=== PATIENT | male | born 1980 | race American Indian/Alaskan Native ===

== ENCOUNTER 2018-05-03 15:31 | Emergency (ER) | payer SELFPAY ==
[2018-05-03 15:42] VITALS: BP 135/92
[2018-05-03] MEDS ORDERED: Ondansetron 4 MG/2 ML SDV IVPUSH ONE (16:05)
[2018-05-03] MEDS ORDERED: HYDROmorphone 1 MG/ML Syringe IVPUSH ONE (16:05)
[2018-05-03] MEDS ORDERED: Sodium Chloride 0.9% 10 ML Syringe FLUSH ONE (16:22)
[2018-05-03] MEDS ORDERED: Iopamidol 755 Mg/ML 100 ML Bottle IVPUSH ONE (16:22)
[2018-05-03] MEDS ORDERED: Sodium Chloride 0.9% 100 ML IV SCH (16:30)
[2018-05-03] MEDS ORDERED: Sodium Chloride 0.9% 1,000 ML IV ONE (16:48)
--- NOTE | 2018-05-03 18:32 | EDM.PDOC ---
ED HPI GENERAL MEDICAL PROBLEM - General Chief Complaint: General Stated Complaint: DIZZY Time Seen by Provider: 05/03/18 15:55 Source of Information: Reports: Patient History Limitations: Reports: No Limitations - History of Present Illness INITIAL COMMENTS - FREE TEXT/NARRATIVE: 37 year old male presents for evaluation and treatment of dizziness, shortness of breath and chest pain. Patient reports he had an uncomplicated lap madisyn with Dr. Villagran on 04-13-18. No complications with the procedure, he was discharge home that day. 1 week ago he follow-up with Dr. Villagran. Reported chest pain and shortness of breath. He was reportedly tachycardic in the office and encouraged to come to the ER. Reports he did not come due to insurance and costs concerns. Patient is currently reporting symptoms of shortness of breath, cough, lightheadedness and mid back pain. Reports chest pain one week ago, none currently. Chest pain was worse with deep breathing. Reports he had an episode of syncope yesterday, unwitnessed unclear how long he passed out for. Patient is reporting cramping in the left foot. No pain in the calfs. No recent swelling the legs. Patient reports he has a past medical history of PE. Developed a PE after being hospitalized for a drug OD and was intubated in the ICU. This was several years ago. Not currently on blood thinners. Mid-Sternal Chest Pain Score (Numeric/FACES): 4 - Related Data Allergies Allergy/AdvReac Type Severity Reaction Status Date / Time cephalexin monohydrate Allergy Hives Verified 04/02/18 10:52 [From Keflex] cyclobenzaprine HCl Allergy Seizure Verified 04/02/18 10:52 [From Flexeril] diazepam [From Valium] Allergy Seizure Verified 04/02/18 10:52 Home Meds: Home Meds Albuterol Sulfate [Albuterol Sulfate HFA] 1 puff INH QID PRN 04/06/14 [History] levETIRAcetam [Keppra] 500 mg PO DAILY 04/06/14 [History] metFORMIN [Glucophage] 500 mg PO BID 04/06/14 [History] Apixaban [Eliquis] 5 mg PO DAILY 02/11/16 [History] Dicyclomine HCl [Bentyl] 10 mg PO Q6HR 04/07/16 [History] Acetaminophen/HYDROcodone [[place] 325-5 MG] 1 - 2 tab PO Q6H PRN #10 tablet 04/08 [Rx] Past Medical History HEENT History: Reports: Impaired Vision Cardiovascular History: Reports: Blood Clots/VTE/DVT, Hypertension Respiratory History: Reports: Asthma Gastrointestinal History: Reports: GERD Neurological History: Reports: Seizure Psychiatric History: Reports: Anxiety, Depression Endocrine/Metabolic History: Reports: Diabetes, Type II - Infectious Disease History Other Infectious Disease History: camphlobacter - Past Surgical History GI Surgical History: Reports: Appendectomy, Cholecystectomy Other Neurological Surgeries/Procedures: gets twitches Musculoskeletal Surgical History: Reports: ORIF Social & Family History - Family History Family Medical History: Noncontributory Endocrine/Metabolic: Reports: Diabetes, type II - Tobacco Use Smoking Status *Q: Never Smoker - Caffeine Use Caffeine Use: Reports: Coffee Other Caffeine Use: 12 pack a day root beer - Living Situation & Occupation Living situation: Reports: Single, with Family Occupation: Employed ED ROS GENERAL - Review of Systems Review Of Systems: See Below Respiratory: Reports: Shortness of Breath, Cough Cardiovascular: Reports: Chest Pain GI/Abdominal: Denies: Abdominal Pain, Nausea, Vomiting Musculoskeletal: Reports: Back Pain, Foot Pain (left foot cramping). Denies: Leg Pain Neurological: Reports: Syncope (yesterday) ED EXAM, GENERAL - Physical Exam Exam: See Below Exam Limited By: No Limitations General Appearance: Alert, WD/WN, No Apparent Distress Throat/Mouth: Normal Inspection, Normal Voice, No Airway Compromise Respiratory/Chest: No Respiratory Distress, Lungs Clear, Normal Breath Sounds Cardiovascular: Normal Peripheral Pulses, Regular Rate, Rhythm, No Murmur GI/Abdominal: Normal Bowel Sounds, Soft, Non-Tender Neurological: Alert, Oriented, Normal Cognition Psychiatric: Normal Affect, Normal Mood Skin Exam: Warm, Dry, Normal Color EKG INTERPRETATION EKG Date: 05/03/18 Time: 16:03 Rhythm: NSR Rate (Beats/Min): 100 [place]: Normal P-Wave: Present QRS: Normal ST-T: Normal QT: Normal EKG Interpretation Comments: Sinus tachycardia at 100 bpm. No acute changes. Reviewed by myself and Dr. Tee. Course - Vital Signs Last Recorded V/S: Last Vital Signs Temp 97.4 F 05/03/18 15:39 Pulse 98 05/03/18 15:39 Resp 16 05/03/18 15:39 BP 135/92 H 05/03/18 15:39 Pulse Ox 97 05/03/18 15:39 - Orders/Labs/Meds Labs: Laboratory Tests 05/03/18 05/03/18 05/03/18 Range/Units 15:50 15:50 15:50 WBC 8.65 (4.23-9.07) K/mm3 RBC 4.77 (4.63-6.08) M/mm3 Hgb 14.7 (13.7-17.5) gm/L Hct 42.2 (40.1-51.0) % MCV 88.5 (79.0-92.2) fl MCH 30.8 (25.7-32.2) pg MCHC 34.8 (32.2-35.5) g/dl RDW Std Deviation 46.0 H (35.1-43.9) fL Plt Count 266 (163-337) K/mm3 MPV 12.7 H (9.4-12.3) fl Neut % (Auto) 44.6 (34.0-67.9) % Lymph % (Auto) 40.0 (21.8-53.1) % [place] % (Auto) 9.6 (5.3-12.2) % Eos % (Auto) 5.0 (0.8-7.0) Baso % (Auto) 0.5 (0.1-1.2) % Neut # (Auto) 3.86 (1.78-5.38) K/mm3 Lymph # (Auto) 3.46 (1.32-3.57) K/mm3 [place] # (Auto) 0.83 H (0.30-0.82) K/mm3 Eos # (Auto) 0.43 (0.04-0.54) K/mm3 Baso # (Auto) 0.04 (0.01-0.08) K/mm3 PT 10.1 (9.5-12.1) SECONDS INR 0.93 APTT 26 (24-31) SECONDS D-Dimer, Quantitative 0.49 (0.19-0.50) mg/L Sodium 141 (136-145) mEq/L Potassium 4.1 (3.5-5.1) mEq/L Chloride 104 (98-107) mEq/L Carbon Dioxide 21 (21-32) mEq/L Anion Gap 20.1 H (5-15) BUN 33 H (7-18) mg/dL Creatinine 1.2 (0.7-1.3) mg/dL Est Cr Clr Drug Dosing 77.27 mL/min Estimated GFR (MDRD) > 60 (>60) mL/min BUN/Creatinine Ratio 27.5 H (14-18) Glucose 154 H (74-106) mg/dL Calcium 9.5 (8.5-10.1) mg/dL Total Bilirubin 0.4 (0.2-1.0) mg/dL AST 26 (15-37) U/L ALT 58 (16-63) U/L Alkaline Phosphatase 93 (46-116) U/L Troponin I < 0.017 (0.00-0.056) ng/mL C-Reactive Protein (<1.0) mg/dL NT-Pro-B Natriuret Pep (0-125) pg/mL Total Protein 7.6 (6.4-8.2) g/dl Albumin 4.1 (3.4-5.0) g/dl Globulin 3.5 gm/dL Albumin/Globulin Ratio 1.2 (1-2) 05/03/18 05/03/18 Range/Units 15:50 15:50 WBC (4.23-9.07) K/mm3 RBC (4.63-6.08) M/mm3 Hgb (13.7-17.5) gm/L Hct (40.1-51.0) % MCV (79.0-92.2) fl MCH (25.7-32.2) pg MCHC (32.2-35.5) g/dl RDW Std Deviation (35.1-43.9) fL Plt Count (163-337) K/mm3 MPV (9.4-12.3) fl Neut % (Auto) (34.0-67.9) % Lymph % (Auto) (21.8-53.1) % [place] % (Auto) (5.3-12.2) % Eos % (Auto) (0.8-7.0) Baso % (Auto) (0.1-1.2) % Neut # (Auto) (1.78-5.38) K/mm3 Lymph # (Auto) (1.32-3.57) K/mm3 [place] # (Auto) (0.30-0.82) K/mm3 Eos # (Auto) (0.04-0.54) K/mm3 Baso # (Auto) (0.01-0.08) K/mm3 PT (9.5-12.1) SECONDS INR APTT (24-31) SECONDS D-Dimer, Quantitative (0.19-0.50) mg/L Sodium (136-145) mEq/L Potassium (3.5-5.1) mEq/L Chloride (98-107) mEq/L Carbon Dioxide (21-32) mEq/L Anion Gap (5-15) BUN (7-18) mg/dL Creatinine (0.7-1.3) mg/dL Est Cr Clr Drug Dosing mL/min Estimated GFR (MDRD) (>60) mL/min BUN/Creatinine Ratio (14-18) Glucose (74-106) mg/dL Calcium (8.5-10.1) mg/dL Total Bilirubin (0.2-1.0) mg/dL AST (15-37) U/L ALT (16-63) U/L Alkaline Phosphatase (46-116) U/L Troponin I (0.00-0.056) ng/mL C-Reactive Protein < 0.2 (<1.0) mg/dL NT-Pro-B Natriuret Pep < 5 (0-125) pg/mL Total Protein (6.4-8.2) g/dl Albumin (3.4-5.0) g/dl Globulin gm/dL Albumin/Globulin Ratio (1-2) Meds: Medications Discontinued Medications Generic Name Dose Route Start Last Admin Trade Name Freq PRN Reason Stop Dose Admin Hydromorphone HCl 0.5 mg 05/03/18 16:05 05/03/18 16:27 Dilaudid IVPUSH 05/03/18 16:06 0.5 mg ONETIME ONE Administration Sodium Chloride 100 mls @ 60 mls/hr 05/03/18 16:30 Normal Saline IV ASDIRECTED PRISCA Sodium Chloride 1,000 mls @ 999 mls/hr 05/03/18 16:48 05/03/18 16:54 Normal Saline IV 05/03/18 17:48 999 mls/hr ONETIME ONE Administration Iopamidol 100 ml 05/03/18 16:22 Isovue-370 (76%) IVPUSH 05/03/18 16:23 ONETIME ONE Ondansetron HCl 4 mg 05/03/18 16:05 05/03/18 16:27 Zofran IVPUSH 05/03/18 16:06 4 mg ONETIME ONE Administration Sodium Chloride 10 ml 05/03/18 16:22 Saline Flush FLUSH 05/03/18 16:23 ONETIME ONE - Radiology Interpretation Free Text/Narrative:: chest xray shows no acute intrathoraocic process - Re-Assessments/Exams Free Text/Narrative Re-Assessment/Exam: 05/03/18 18:29 Reviewed the labs, ekg and imaging with the patient. He reports he is feeling improved at this time. Suspect he is experiencing pain from the recent surgery and being insuflated. Suspect the recent syncopal episode is from dehydration. Recommend close follow-up in the clinic. Discharge instructions as documented. Departure - Departure Time of Disposition: 18:30 Disposition: Home, Self-Care 01 Condition: Fair Clinical Impression: Dehydration - Discharge Information *PRESCRIPTION DRUG MONITORING PROGRAM REVIEWED*: No *COPY OF PRESCRIPTION DRUG MONITORING REPORT IN PATIENT RADHA: No Instructions: Dehydration, Adult, [id number] Referrals: PCP,None [Primary Care Provider] - Xena Matson MD [Ordering Only Provider] - Forms: ED Department Discharge Additional Instructions: Rest. make sure you are drinking plenty of fluids. May take [id number] Tylenol or Motrin as needed for pain. I suspect the pain should resolve within the next week or 2. This is likely from your recent gallbladder surgery. Follow up with primary care this week or next week for recheck of your symptoms. Recommend follow-up with family medicine recommend Xena Matson or Suyapa Adams at the [facility]. Call [phone] to schedule with one of these providers. Please return to the ER if your symptoms change or worsen.
--- NOTE | 2018-05-05 08:30 | CR ---
Chest: Portable view of the chest was obtained. Comparison: Prior chest x-ray of 04/06/14. Heart size and mediastinum are normal. Lungs are clear. Bony structures are unremarkable. Impression: 1. Nothing acute is seen on portable chest x-ray. Diagnostic code #1
== END 2018-05-03 18:40 | disposition home or self-care (01) ==
LOC: JD.ED 15:31
DX: E86.0 Dehydration (principal); I10 Essential (primary) hypertension; F32.9 Major depressive disorder, single episode, unspecified; E11.9 Type 2 diabetes mellitus without complications; J45.909 Unspecified asthma, uncomplicated; Z88.1 Allergy status to other antibiotic agents; Z88.8 Allergy status to other drugs, medicaments and biological substances; Z79.899 Other long term (current) drug therapy; Z79.84 Long term (current) use of oral hypoglycemic drugs
CPT/HCPCS: 36415; 71045; 80053; 83880; 84484; 85025; 85379; 85610; 85730; 86140; 87804; 93005; 96361; 96374; 96375; 99284; J1170; J2405; J7040

== ENCOUNTER 2018-10-31 13:07 | Emergency (ER) | payer SELFPAY ==
[2018-10-31 13:23] VITALS: BP 151/93
[2018-10-31] MEDS ORDERED: Metoclopramide 10 MG/2 ML SDV IVPUSH ONE (13:29)
[2018-10-31] MEDS ORDERED: HYDROmorphone 1 MG/ML Syringe IVPUSH ONE (13:29)
[2018-10-31] MEDS ORDERED: Dextrose 5%-0.9% NaCl 1,000 ML IV SCH (13:30)
--- NOTE | 2018-10-31 13:37 | EDM.PDOC ---
ED HPI GENERAL MEDICAL PROBLEM - General Chief Complaint: Head Injury Stated Complaint: FELL AND HIT HEAD Time Seen by Provider: 10/31/18 13:28 Source of Information: Reports: Patient History Limitations: Reports: No Limitations - History of Present Illness INITIAL COMMENTS - FREE TEXT/NARRATIVE: 37-year-old male presents to the ED after getting tripped up in a flower bed outside of his home. He states he got tripped up with some decorative rocks and this propelled him to the ground landing very hard on the top of his right shoulder. He also hit the right side of his head but he states this is minor compared to the pain in his shoulder. Of note it's his right shoulder that was injured and he is right-hand dominant. No loss of consciousness.. Injury occurred about 10:30 this morning. Onset: Today Onset Date: 10/31/18 Onset Time: 10:30 Duration: Hour(s): Location: Reports: Upper Extremity, Right Quality: Reports: Ache (Right shoulder), Throbbing Severity: Moderate Improves with: Reports: Rest Worsens with: Reports: Movement (It hurts quite badly even at rest. Marked pain with movement such as attempting to abduct.) Context: Reports: Trauma (Tripped up and fell in the flower bed.). Denies: Activity, Exercise, Lifting, Sick Contact Associated Symptoms: Reports: Other (Mild contusion right parietal scalp). Denies: Confusion, Chest Pain, Cough, cough w sputum, Diaphoresis, Fever/Chills , Headaches, Loss of Appetite, Malaise, Nausea/Vomiting Treatments MEAT HOSTESS: Reports: Other (see below) (None.) Right Head Pain Score (Numeric/FACES): 6 Right Shoulder Pain Score (Numeric/FACES): 8 - Related Data Allergies Allergy/AdvReac Type Severity Reaction Status Date / Time cephalexin monohydrate Allergy Hives Verified 04/02/18 10:52 [From Keflex] cyclobenzaprine HCl Allergy Seizure Verified 04/02/18 10:52 [From Flexeril] diazepam [From Valium] Allergy Seizure Verified 04/02/18 10:52 Home Meds: Home Meds Albuterol Sulfate [Albuterol Sulfate HFA] 1 puff INH QID PRN 04/06/14 [History] levETIRAcetam [Keppra] 500 mg PO BID 04/06/14 [History] metFORMIN [Glucophage] 500 mg PO BID 04/06/14 [History] Dicyclomine HCl [Bentyl] 10 mg PO Q6HR 04/07/16 [History] Mometasone/Formoterol [[place]ulera 200 Mcg/5 Mcg Inhaler] 2 puff INH DAILY 10/31/18 [ History] oxyCODONE HCl/Acetaminophen [Percocet 5-325 mg Tablet] 1 - 2 each PO Q4H PRN # 12 tablet 10/31/18 [Rx] Past Medical History HEENT History: Reports: Impaired Vision Cardiovascular History: Reports: Blood Clots/VTE/DVT, Hypertension Respiratory History: Reports: Asthma Gastrointestinal History: Reports: GERD Neurological History: Reports: Seizure Psychiatric History: Reports: Anxiety, Depression Endocrine/Metabolic History: Reports: Diabetes, Type II - Infectious Disease History Other Infectious Disease History: camphlobacter - Past Surgical History GI Surgical History: Reports: Appendectomy, Cholecystectomy Other Neurological Surgeries/Procedures: gets twitches Musculoskeletal Surgical History: Reports: ORIF Social & Family History - Family History Family Medical History: Noncontributory Endocrine/Metabolic: Reports: Diabetes, type II - Tobacco Use Smoking Status *Q: Former Smoker Used Tobacco, but Quit: Yes Month/Year Tobacco Last Used: 2 yr - Caffeine Use Caffeine Use: Reports: Coffee, Soda Other Caffeine Use: 12 pack a day root beer - Recreational Drug Use Recreational Drug Type: Reports: Marijuana/Hashish Recreational Drug Use Frequency: Daily - Living Situation & Occupation Living situation: Reports: Single, with Family Occupation: Employed ED ROS GENERAL - Review of Systems Review Of Systems: See Below Constitutional: Reports: No Symptoms HEENT: Reports: Glasses Respiratory: Reports: No Symptoms Cardiovascular: Reports: No Symptoms Endocrine: Reports: No Symptoms GI/Abdominal: Reports: No Symptoms : Reports: No Symptoms Musculoskeletal: Reports: No Symptoms Skin: Reports: No Symptoms Neurological: Reports: No Symptoms Psychiatric: Reports: No Symptoms Hematologic/Lymphatic: Reports: No Symptoms Immunologic: Reports: No Symptoms ED EXAM, HEAD INJURY - Physical Exam Exam: See Below Exam Limited By: No Limitations General Appearance: Alert, Moderate Distress (In obvious pain and discomfort right shoulder) Head: Scalp Tenderness (Some tenderness in the parietal scalp and along the right side of his face but there is no significant swelling or abrasions or contusions.), Facial Tenderness (Anterior to the right ear and temporal parietal scalp without any scalp hematoma) Nexus Criteria: No: Posterior, Midline Cervical Tenderness, Evidence of Intoxication, Altered Level of Consciousness, Focal Neurological Deficit, Painful Distraction Injuries Eyes: Bilateral Eye: Normal Inspection Ears: Normal TMs Nose: Normal Inspection Throat/Mouth: Normal Inspection, Normal Lips, Normal Teeth, Normal Oropharynx, Normal Voice, Other (No dental or tongue injury.) Neck: Non-Tender, Full Range of Motion, Normal Alignment, Normal Inspection Respiratory: No Respiratory Distress, Lungs Clear, Normal Breath Sounds, No Accessory Muscle Use, Chest Non-Tender Cardiovascular: Normal Peripheral Pulses, Regular Rate, Rhythm, No Edema, No Gallop, No Murmur, No Rub Extremities: Other (Examination reveals marked swelling on the superior aspect of his right shoulder with point tenderness over the acromioclavicular joint. Obvious deformity of the proximal humerus although he has fairly large arms. Distal clavicle is also very tender to palpation.) Neurologic: No Motor/Sensory Deficits, Alert, Normal Mood/Affect, Oriented x 3 Skin: Normal Color, Warm/Dry - Rosana Coma Score Best Eye Response ([place]): (4) Open Spontaneously Best Verbal Response ([place]): (5) Oriented Best Motor Response ([place]): (6) Obeys Commands Rosana Total: 15 Course - Vital Signs Last Recorded V/S: Last Vital Signs Temp 36.8 C 10/31/18 13:20 Pulse 89 10/31/18 13:20 Resp 20 10/31/18 13:20 BP 151/93 H 10/31/18 13:20 Pulse Ox 98 10/31/18 13:20 - Orders/Labs/Meds Meds: Medications Discontinued Medications Generic Name Dose Route Start Last Admin Trade Name Jonathanq PRN Reason Stop Dose Admin Hydromorphone HCl 1 mg 10/31/18 13:29 10/31/18 14:16 Dilaudid IVPUSH 10/31/18 13:30 1 mg ONETIME ONE Administration Dextrose/Sodium Chloride 1,000 mls @ 125 mls/hr 10/31/18 13:30 10/31/18 14:13 Dextrose 5%-Normal Saline IV 125 mls/hr ASDIRECTED PRISCA Administration Metoclopramide HCl 10 mg 10/31/18 13:29 10/31/18 14:13 Reglan IVPUSH 10/31/18 13:30 10 mg ONETIME ONE Administration - Radiology Interpretation Free Text/Narrative:: 37-year-old male presents to the ED after getting tripped up and falling in his floor bed. States he landed with direct blow to his right shoulder. Injury occurred about 10:30 this morning. Currently unable to forward flex or abduct the right arm due to pain in the shoulder. He on examination has significant swelling over the superior right shoulder and point tenderness over the acromioclavicular process. Plan IV D5 normal saline at 150 mils per hour. Will give Dilaudid 1 mg IV with Reglan 10 mg IV for pain relief. He is acting like he has a fracture. Plan x-rays of the shoulder will be done. - Re-Assessments/Exams Free Text/Narrative Re-Assessment/Exam: 10/31/18 14:14 x-ray of the right shoulder shows no dislocation or fractures. The acromioclavicular joint is aligned normally. There is a large amount of soft tissue swelling over the A-C joint and this is where he has well localized tenderness. Treatment will be sling and swath. Ice one half hour out of every 4 hours. He will be out of work for the next week. We'll give him 10 Percocet tablets to take 1 every 4-6 hours with Motrin 600 mg every 6 hours for pain relief. Departure - Departure Time of Disposition: 14:25 Disposition: Home, Self-Care 01 Condition: Fair Clinical Impression: Acromioclavicular separation, type 1 Qualifiers: Encounter type: initial encounter Laterality: right Qualified Code(s): S43.101A - Unspecified dislocation of right acromioclavicular joint, initial encounter - Discharge Information *PRESCRIPTION DRUG MONITORING PROGRAM REVIEWED*: No *COPY OF PRESCRIPTION DRUG MONITORING REPORT IN PATIENT RADHA: No Prescriptions: oxyCODONE HCl/Acetaminophen [Percocet 5-325 mg Tablet] 1 - 2 each PO Q4H PRN # 12 tablet PRN Reason: pain relief. Instructions: Acromioclavicular Separation, Acromioclavicular Separation Rehab- [facility] Referrals: PCP,None [Primary Care Provider] - Forms: ED Department Discharge Additional Instructions: Evaluation the emergency room today in regards to a fall at home outside. He suffered a direct blow to the superior or top of your right shoulder. There is marked soft tissue swelling in the trapezius muscle on top of your shoulder. There is point tenderness over the acromioclavicular joint. An x-ray of your right shoulder was carried out after you were given intravenous pain medications as concern for fracture was evident. The x-rays reveal no fractures however in the right shoulder or dislocation of the shoulder or injury to the arm bone called the humerus. Clinically you have suffered a grade 1 separation of the acromioclavicular joint and significant soft tissue swelling on the right shoulder. Treatment is to immobilize the right arm for the next week. After this she may take it out of the sling and start to regain range of motion. Ice pack to the area for one half hour out of every 4 hours today and tomorrow. Motrin 600 mg every 6 hours. Percocet tabs 5/325 mg one or 2 every 4- 6 hours for pain not controlled by Motrin alone. Note given to excuse her from the work place for at least the next week and it may be closer to 10 days before he able to return to full duties. Suggest follow-up with personal care physician in a week's time or the occupational health clinic on the [facility] on Thursday next week.
--- NOTE | 2018-11-01 11:06 | CR ---
Right shoulder: Three views of the right shoulder were obtained. Comparison: No previous study. Glenohumeral and acromioclavicular joint appears within normal limits. No fracture, dislocation or other bony abnormality is seen. Impression: 1. No abnormality is identified on right shoulder exam. Diagnostic code #1
== END 2018-10-31 15:30 | disposition home or self-care (01) ==
LOC: JD.ED 13:07
DX: S43.101A Unspecified dislocation of right acromioclavicular joint, initial encounter (principal); I10 Essential (primary) hypertension; J45.909 Unspecified asthma, uncomplicated; K21.9 Gastro-esophageal reflux disease without esophagitis; F41.9 Anxiety disorder, unspecified; F32.9 Major depressive disorder, single episode, unspecified; E11.9 Type 2 diabetes mellitus without complications; Z87.891 Personal history of nicotine dependence; Z88.1 Allergy status to other antibiotic agents; Z79.84 Long term (current) use of oral hypoglycemic drugs; Z79.899 Other long term (current) drug therapy; W01.0XXA Fall on same level from slipping, tripping and stumbling without subsequent striking against object, initial encounter
CPT/HCPCS: 73030; 96361; 96374; 96375; 99283; J1170; J2765; J7042; 99284

== ENCOUNTER 2019-01-02 23:48 | Observation (INO) | payer MEDICAID, OTHER ==
--- NOTE | 2019-01-03 00:44 | EDM.PDOC ---
ED HPI GENERAL MEDICAL PROBLEM - General Chief Complaint: Allergic Reaction Stated Complaint: LIP SWELLING/DIFFICULTY SWALLOWING Time Seen by Provider: 01/03/19 00:11 Source of Information: Reports: Patient History Limitations: Reports: No Limitations - History of Present Illness INITIAL COMMENTS - FREE TEXT/NARRATIVE: The patient states that he was started on venlafaxine (Effexor XR) and gemfibrozil about 2-3 weeks ago. He developed lower lip swelling around 20:00 this evening, then numbness to his tongue, difficulty swallowing, and throat itchiness around 23:30. He denies having any pruritus or rash. No dyspnea or wheezing. No prior similar symptoms. In addition to venlafaxine and gemfibrozil, the patient is also on Keppra for a seizure disorder, metformin for diabetes, and Advair for suspected asthma versus COPD. Despite the nurses asking, the patient did not inform them that he is also on omeprazole for GERD, and lisinopril for hypertension. The patient states that he took 25 mg of diphenhydramine just prior to coming to the ED. The patient's PCP is Efrain (he does not recall her last name). Lower Lip Pain Score (Numeric/FACES): 6 - Related Data Allergies Allergy/AdvReac Type Severity Reaction Status Date / Time cephalexin monohydrate Allergy Hives Verified 04/02/18 10:52 [From Keflex] cyclobenzaprine HCl Allergy Seizure Verified 04/02/18 10:52 [From Flexeril] diazepam [From Valium] Allergy Seizure Verified 04/02/18 10:52 Home Meds: Home Meds levETIRAcetam [Keppra] 500 mg PO BID 04/06/14 [History] metFORMIN [Glucophage] 500 mg PO BID 04/06/14 [History] Fluticasone/Salmeterol [Advair 250-50 Diskus] 1 puff INH BID 01/02/19 [History] Venlafaxine HCl [Venlafaxine ER] 150 mg PO DAILY 01/02/19 [History] Lisinopril 1 dose PO DAILY 01/03/19 [History] Omeprazole 20 mg PO DAILY 01/03/19 [History] Past Medical History HEENT History: Reports: Impaired Vision Cardiovascular History: Reports: Blood Clots/VTE/DVT (DVT, treated with Eliquis x 7 or 8 months), High Cholesterol, Hypertension Respiratory History: Reports: Asthma (suspected, never tested) Gastrointestinal History: Reports: GERD Neurological History: Reports: Seizure Psychiatric History: Reports: Anxiety, Depression Endocrine/Metabolic History: Reports: Diabetes, Type II - Past Surgical History HEENT Surgical History: Reports: Oral Surgery (wisdom teeth extraction) GI Surgical History: Reports: Appendectomy, Cholecystectomy (May 2018) Musculoskeletal Surgical History: Reports: ORIF (right hand) Social & Family History - Family History Family Medical History: Noncontributory Endocrine/Metabolic: Reports: Diabetes, type II - Tobacco Use Smoking Status *Q: Former Smoker Years of Tobacco use: 22 Packs/Tins Daily: 1 Month/Year Tobacco Last Used: Quit 2016 - Caffeine Use Caffeine Use: Reports: Coffee, Soda Other Caffeine Use: 12 pack a day root beer - Alcohol Use Alcohol Use History: Yes Alcohol Use Frequency: Socially - Recreational Drug Use Recreational Drug Use: Yes Drug Use in Last 12 Months: Yes Recreational Drug Type: Reports: Marijuana/Hashish (last smoked mid Dec 2018) - Living Situation & Occupation Living situation: Reports: Single, Other (with a friend) Occupation: Employed ([employer]) ED ROS GENERAL - Review of Systems Review Of Systems: ROS reveals no pertinent complaints other than HPI. ED EXAM, GENERAL - Physical Exam Exam: See Below Exam Limited By: No Limitations General Appearance: Alert, WD/WN, No Apparent Distress Eye Exam: Bilateral Eye: EOMI, Normal Inspection Ears: Normal External Exam, Normal Canal, Hearing Grossly Normal, Normal TMs Nose: Normal Inspection, Normal Mucosa, No Blood Throat/Mouth: Normal Teeth, Normal Gums, Normal Voice, No Airway Compromise, Other (Considerable swelling to the patient's lower left, Rt > Lt. no swelling at all to his upper lip. There is mild to moderate swelling of his tongue, and mild to moderate swelling of his uvula.) Head: Atraumatic, Normocephalic Neck: Normal Inspection, Supple, Non-Tender, Full Range of Motion. No: Lymphadenopathy (L), Lymphadenopathy (R) Respiratory/Chest: No Respiratory Distress, Lungs Clear, Normal Breath Sounds, No Accessory Muscle Use. No: Decreased Breath Sounds, Crackles, Rhonchi, Wheezing, Stridor, Prolonged Expiration Cardiovascular: Normal Peripheral Pulses, Regular Rate, Rhythm, No Edema, No Gallop, No JVD, No Murmur, No Rub Peripheral Pulses: 4+: Radial (L), Radial (R) GI/Abdominal: Normal Bowel Sounds, Soft, Non-Tender, No Organomegaly, No Distention, No Abnormal Bruit, No Mass (Male) Exam: Deferred Rectal (Males) Exam: Deferred Back Exam: Normal Inspection, Full Range of Motion, NT Extremities: Normal Inspection, Normal Range of Motion, No Pedal Edema, Normal Capillary Refill Neurological: Alert, Oriented, Normal Cognition, No Motor/Sensory Deficits Psychiatric: Normal Affect Skin Exam: Warm, Dry, Intact, Normal Color, No Rash Course - Vital Signs Last Recorded V/S: Last Vital Signs Temp 35.8 C 01/03/19 06:53 Pulse 81 01/03/19 06:53 Resp 16 01/03/19 06:53 BP 141/85 H 01/03/19 06:53 Pulse Ox 98 01/03/19 06:53 - Orders/Labs/Meds Meds: Medications Discontinued Medications Generic Name Dose Route Start Last Admin Trade Name Juli PRN Reason Stop Dose Admin C1 Esterase Inhibitor (Human) 1,600 units 01/03/19 01:51 01/03/19 04:09 Berinert IV 01/03/19 01:52 1,100 units ONETIME STA Administration Tranexamic Acid 1,000 mg 01/03/19 00:31 01/03/19 00:44 Cyklokapron IVPUSH 01/03/19 00:32 1,000 mg ONETIME ONE Administration - Re-Assessments/Exams Free Text/Narrative Re-Assessment/Exam: 01/03/19 00:37 The patient appears to be 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 Angioedema from venlafaxine or gemfibrozil is far less likely, with an incidence of <1% for each. He has significant lower lip swelling, and moderate tongue swelling, along with moderate uvular swelling. He states that he feels like his throat is itching, and he has difficulty swallowing. Airway obstruction is not imminent, but I will have to keep a close eye on it. If his airway swells much more, I will not hesitate to sedate and intubate him. Since we do not carry icantibant (Firazyr), the drug of choice, the patient will receive 1 g of IV tranexamic acid (TXA). If his swelling has not significantly improved within one hour, I will treat him with Berinert. 01/03/19 01:16 The patient was given the TXA at 00:44. At present, I see no improvement. His lower lip and uvula appear to be about the same, and his tongue appears to be slightly more swollen. There is still no immediate danger of airway obstruction. 01/03/19 01:49 On reevaluation, I see no change since my last examination. I will order Berinert once we get an accurate weight on the patient. 01/03/19 02:00 The weight-based dose of Berinert for this patient is 1600 Units, however, I am informed by Kayli ALARCON that this hospital only has one vial = 500 Units. The patient will receive the 500 units that we have, but he will then need to either transfer to [place] to receive the remaining, or have [place] send us the medicine. The patient has no preference of [facility] versus [facility]. 01/03/19 02:06 Case discussed with Bette at [facility] at 02:02. She will check with their Pharmacist, first to see if they carry enough Berinert, and then how they would transport it to us, if that is what is decided. In the meantime, since icantibant is actually the drug of choice, I asked her to check with the Pharmacist whether or not they carry that, as well. 01/03/19 02:15 Called back by Bette at 02:13. They have 3 vials of Berinert that we are welcome to have, although they do not carry icantibant, either. The Pharmacist does not have any preference as to how the Berinert is transported to us. It seems to me that having the patient stay here with the medicine being brought to us would be safer for the patient, allowing us to monitor him the entire time , and would likely be a lot less expensive, as well. Bette said that there are 2 cab services in [place]; she will call both of them to see if one of them is willing to do that. 01/03/19 02:26 On reexamination, the patient appears to be stable. His tongue and uvula might be slightly less swollen than earlier. 01/03/19 02:58 Notified that a state federal relations deputy director left [place] 8 minutes ago with the Berinert. 01/03/19 03:17 On reexamination, the patient appears to be stable. No visible change in the degree of swelling of his lip, tongue, or uvula. 01/03/19 03:58 On reexamination, the patient appears to be stable. No visible change in the degree of swelling of his lip, tongue, or uvula. 01/03/19 04:02 The trooper has arrived with the Berinert. The patient will be given the remaining 1100 Units. 01/03/19 04:22 The patient received the additional 1100 units of Berinert at 04:09. 01/03/19 05:01 On reexamination, the uvular swelling has improved, and his tongue swelling may have improved a bit, although his lip swelling appears unchanged. Getting fresh frozen plasma is an option, but since there does not appear to be any imminent threat to the patient's airway, I don't feel that giving it is necessary. It may take some time for adequate improvement; I recommended placement into observation until then. The patient agreed. 01/03/19 05:[address] Alvarez at 05:02. He agreed to place the patient into observation, in the ICU. 01/03/19 06:15 On reexamination, there is no significant improvement since my last exam. Departure - Departure Time of Disposition: 05:04 Disposition: Refer to Observation Condition: Fair Clinical Impression: Angioedema due to angiotensin converting enzyme inhibitor (SARAH-I) - Discharge Information *PRESCRIPTION DRUG MONITORING PROGRAM REVIEWED*: Not Applicable *COPY OF PRESCRIPTION DRUG MONITORING REPORT IN PATIENT RADHA: Not Applicable
--- NOTE | 2019-01-03 07:18 | PCM.HP.2 ---
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 No cutaneous changes or complaints, dyspnea, shortness of breath or chest discomfort. He reports no similar hx in the past. He took Benadryl last night just prior to arrival in ED. Patient takes Lisinopril and Metformin for HTN and Diabetes respectively. He is also on Keppra for Seizure Disorder. However he was started on Effexor XR and Gemfibrozil about 2-3 weeks ago. He denies any unusual diet or drinks. Patient was admitted convalescent sitter hours primarily for treatment of angioedema Lower Lip Pain Score (Numeric/FACES): 6 - Related Data Allergies/Adverse Reactions: Allergies Allergy/AdvReac Type Severity Reaction Status Date / Time cephalexin monohydrate Allergy Hives Verified 04/02/18 10:52 [From Keflex] cyclobenzaprine HCl Allergy Seizure Verified 04/02/18 10:52 [From Flexeril] diazepam [From Valium] Allergy Seizure Verified 04/02/18 10:52 Home Medications: Home Meds levETIRAcetam [Keppra] 500 mg PO BID 04/06/14 [History] metFORMIN [Glucophage] 500 mg PO BID 04/06/14 [History] Fluticasone/Salmeterol [Advair 250-50 Diskus] 1 puff INH BID 01/02/19 [History] Venlafaxine HCl [Venlafaxine ER] 150 mg PO DAILY 01/02/19 [History] Cetirizine [ZyrTEC] 10 mg PO DAILY 01/03/19 [History] Cholecalciferol (Vitamin D3) [Vitamin D] 5,000 unit PO DAILY 01/03/19 [History] Lisinopril 1 dose PO DAILY 01/03/19 [History] Omeprazole 20 mg PO DAILY 01/03/19 [History] Past Medical History HEENT History: Reports: Impaired Vision Cardiovascular History: Reports: Blood Clots/VTE/DVT (DVT, treated with Eliquis x 7 or 8 months), High Cholesterol, Hypertension Respiratory History: Reports: Asthma (suspected, never tested) Gastrointestinal History: Reports: GERD Neurological History: Reports: Seizure Psychiatric History: Reports: Anxiety, Depression Endocrine/Metabolic History: Reports: Diabetes, Type II - Infectious Disease History Other Infectious Disease History: camphlobacter - Past Surgical History HEENT Surgical History: Reports: Oral Surgery (wisdom teeth extraction) GI Surgical History: Reports: Appendectomy, Cholecystectomy (May 2018) Musculoskeletal Surgical History: Reports: ORIF (right hand) Social & Family History - Family History Family Medical History: Noncontributory Endocrine/Metabolic: Reports: Diabetes, type II - Tobacco Use Smoking Status *Q: Former Smoker Years of Tobacco use: 22 Packs/Tins Daily: 1 Used Tobacco, but Quit: Yes Month/Year Tobacco Last Used: Quit 2016 - Caffeine Use Caffeine Use: Reports: Coffee, Soda Other Caffeine Use: 12 pack a day root beer - Recreational Drug Use Recreational Drug Use: Yes Drug Use in Last 12 Months: Yes Recreational Drug Type: Reports: Marijuana/Hashish (last smoked mid Dec 2018) - Living Situation & Occupation Living situation: Reports: Single, Other (with a friend) Occupation: Employed ([employer] H&P Review of Systems - Review of Systems: Review Of Systems: ROS reveals no pertinent complaints other than HPI. Exam - Exam Exam: See Below - Vital Signs Vital Signs: Last Vital Signs Temp 35.8 C 01/03/19 06:53 Pulse 81 01/03/19 06:53 Resp 16 01/03/19 06:53 BP 141/85 H 01/03/19 06:53 Pulse Ox 98 01/03/19 06:53 Weight: 79.379 kg - Exam General: Alert, Oriented, Cooperative, Mild Distress HEENT: Conjunctiva Clear, EACs Clear, EOMI, Hearing Intact, Mucosa Moist & [place] , Nares Patent, Normal Nasal Septum, Pupils Equal, Pupils Reactive, Other ( Uvula is deviated to the left and posterior pharynx is narrowed and swollen; lips and tongue were swollen). No: Posterior Pharynx Clear Neck: Supple, Trachea Midline Lungs: Clear to Auscultation, Normal Respiratory Effort Cardiovascular: Regular Rate, Regular Rhythm GI/Abdominal Exam: Normal Bowel Sounds, Soft, Non-Tender, No Organomegaly, No Distention, No Abnormal Bruit (Male) Exam: Deferred Rectal (Males) Exam: Deferred Back Exam: Normal Inspection, Full Range of Motion Extremities: Normal Inspection, Normal Range of Motion, Non-Tender, No Pedal Edema, Normal Capillary Refill Peripheral Pulses: 2+: Posterior Tibial (L), Posterior Tibial (R), Dorsalis Pedis (L), Dorsalis Pedis (R) Skin: Warm, Dry, Intact Neuro Extensive - Mental Status: Oriented x3, Normal Cognition, Memory Intact Neuro Extensive - Motor, Sensory, Reflexes: CN II-XII Intact, Normal Gait DTR: 2+: Patella (L), Patella (R) Psychiatric: Alert, Normal Affect, Normal Mood - Patient Data Result Diagrams: 01/04/19 04:53 01/04/19 04:53 Problem List Initiated/Reviewed/Updated: Yes Orders Last 24hrs: Active Orders 24 hr Category Date Time Status Patient Status [ADT] Routine ADT 01/03/19 06:03 Active Assessment/Plan Comment:: Assessment: Acute: Angioedema with Mild Respiratory Compromise - Suspect 2/2 ACEI - Was started on Effexor XR and Gemfibrozil 2-3 weeks ago--> both could cause angioedema but < 1% - Swollen Lips and Tongue - Uvula is deviated to the left and melanie-pharynx is narrowed and swollen - No skin rash - Received C1 Esterases Inhibitor in ED plus Tranexamic Acid treatment in ED - C1E inhibitor level - IV Steroid, H1 and H2 Blockers - NPO until MANAGER ELECTRICAL eval Chronic: Impaired, Hx/o DVT treated with Eliquis for 7-8 months, HTN, HLD, Asthma, GERD, Seizure Disorder, DM2, Substance Abuse, Anxiety and Depression Plan: Admit to ICU Resume Home Meds except ACEI Clear liquid diet once cleared by MANAGER ELECTRICAL Routine AM Labs DVT/GI Prophylaxis SW/CM for d/c planning Additional orders as above - Mortality Measure Prognosis:: Good
[2019-01-03] MEDS ORDERED: Metoprolol Tartrate 5 MG/5 ML SDV IVPUSH PRN (07:31)
[2019-01-03] MEDS ORDERED: HYDROmorphone 0.5 MG/0.5 ML Syringe IVPUSH PRN (07:31)
[2019-01-03] MEDS ORDERED: Ondansetron 4 MG/2 ML SDV IV PRN (07:31)
[2019-01-03] MEDS ORDERED: Promethazine 6.25 MG in Sodium Chloride 0.9% 50 ML IV PRN (07:31)
[2019-01-03] MEDS ORDERED: Albuterol/Ipratropium 3.0-0.5 MG/3 ML Neb Soln NEB PRN (07:31)
[2019-01-03] MEDS ORDERED: Ibuprofen 400 MG Tab PO PRN (07:31)
[2019-01-03] MEDS ORDERED: hydrALAZINE 20 MG/ML SDV IVPUSH PRN (07:31)
[2019-01-03] MEDS ORDERED: Bisacodyl 5 MG Tab PO PRN (07:31)
[2019-01-03] MEDS ORDERED: Docusate Sodium 100 MG Cap PO PRN (07:31)
[2019-01-03] MEDS ORDERED: Acetaminophen/HYDROcodone 325-5 MG Tab PO PRN (07:31)
[2019-01-03] MEDS ORDERED: Acetaminophen 325 MG Tab PO PRN (07:31)
[2019-01-03] MEDS ORDERED: LORazepam 2 MG/ML SDV IV PRN (07:31)
[2019-01-03] MEDS: methylPREDNISolone Sodium Succinate 125 MG/2 ML SDV IVPUSH SCH ×3 (08:21→23:21)
[2019-01-03] MEDS: diphenhydrAMINE 50 MG/ML SDV IVPUSH SCH ×3 (08:24→23:21)
[2019-01-03] MEDS: Famotidine 20 MG/2 ML SDV IVPUSH SCH ×3 (08:26→23:21)
[2019-01-03] MEDS ORDERED: Pantoprazole 40 MG Vial IV SCH (09:00)
[2019-01-03] MEDS ORDERED: Non-Formulary Medication 1 Each (Fluticasone/Salmeterol 1 PUFF) INH SCH (09:00)
[2019-01-03] MEDS: Venlafaxine 75 MG Cap.ER PO SCH (14:27)
[2019-01-03] MEDS: levETIRAcetam 500 MG Tab PO SCH ×2 (14:27→20:24)
[2019-01-04] MEDS ORDERED: Pantoprazole 40 MG Tab.CR PO SCH ×2 (07:00→08:00)
--- NOTE | 2019-01-04 08:14 | PCM.PN ---
- General Info Date of Service: 01/04/19 Admission Dx/Problem (Free Text): Admission Diagnosis/Problem Admission Diagnosis/Problem Angioedema Subjective Update: Follow Up Functional Status: Reports: Pain Controlled, Tolerating Diet, Ambulating - Review of Systems General: Denies: Fever, Weakness, Fatigue, Malaise, Chills HEENT: Reports: No Symptoms Pulmonary: Denies: Shortness of Breath Cardiovascular: Denies: Chest Pain, Dyspnea on Exertion, Lightheadedness Gastrointestinal: Denies: Abdominal Pain, Nausea, Vomiting Genitourinary: Reports: No Symptoms Musculoskeletal: Reports: No Symptoms Skin: Reports: No Symptoms Neurological: Denies: Confusion, Weakness, Gait Disturbance Psychiatric: Denies: Depression, Anxiety, Agitation, Hallucinations Systems Review Comment:: No overnight or acute issues. He is tolerating current diet and no issues with swallowing or itching. - Patient Data Vitals - Most Recent: Last Vital Signs Temp 36.4 C 01/04/19 03:29 Pulse 81 01/03/19 06:53 Resp 19 01/04/19 03:29 BP 111/80 01/04/19 03:29 Pulse Ox 96 01/04/19 03:29 Weight - Most Recent: 79.3 kg I&O - Last 24 Hours: Intake & Output 01/03/19 01/04/19 01/04/19 22:59 06:59 14:59 Intake Total 660 Output Total 400 800 Balance 260 -800 Lab Results Last 24 Hours: Laboratory Results - last 24 hr 01/04/19 01/04/19 Range/Units 04:53 04:53 WBC 16.95 H (4.23-9.07) K/mm3 RBC 4.47 L (4.63-6.08) M/mm3 Hgb 14.1 (13.7-17.5) gm/L Hct 39.7 L (40.1-51.0) % MCV 88.8 (79.0-92.2) fl MCH 31.5 (25.7-32.2) pg MCHC 35.5 (32.2-35.5) g/dl RDW Std Deviation 42.1 (35.1-43.9) fL Plt Count 250 (163-337) K/mm3 MPV 13.6 H (9.4-12.3) fl Neut % (Auto) 89.5 H (34.0-67.9) % Lymph % (Auto) 8.8 L (21.8-53.1) % [place] % (Auto) 1.4 L (5.3-12.2) % Eos % (Auto) 0 L (0.8-7.0) Baso % (Auto) 0.1 (0.1-1.2) % Neut # (Auto) 15.17 H (1.78-5.38) K/mm3 Lymph # (Auto) 1.50 (1.32-3.57) K/mm3 [place] # (Auto) 0.23 L (0.30-0.82) K/mm3 Eos # (Auto) 0.00 L (0.04-0.54) K/mm3 Baso # (Auto) 0.01 (0.01-0.08) K/mm3 Manual Slide Review Abnormal smear Sodium 137 (136-145) mEq/L Potassium 4.4 (3.5-5.1) mEq/L Chloride 101 (98-107) mEq/L Carbon Dioxide 21 (21-32) mEq/L Anion Gap 19.4 H (5-15) BUN 27 H (7-18) mg/dL Creatinine 1.0 (0.7-1.3) mg/dL Est Cr Clr Drug Dosing 91.81 mL/min Estimated GFR (MDRD) > 60 (>60) mL/min BUN/Creatinine Ratio 27.0 H (14-18) Glucose 168 H (74-106) mg/dL Calcium 9.8 (8.5-10.1) mg/dL Magnesium 1.7 L (1.8-2.4) mg/dl Med Orders - Current: Current Medications Acetaminophen (Tylenol) 650 mg PO Q4H PRN PRN Reason: Pain (Mild 1-3)/fever Hydrocodone Bitart/Acetaminophen ([place] 325-5 Mg) 1 tab PO Q4H PRN PRN Reason: Pain (moderate 4-6) Albuterol/Ipratropium (Duoneb 3.0-0.5 Mg/3 Ml) 3 ml NEB Q4H PRN PRN Reason: Shortness Of Breath/wheezing Bisacodyl (Dulcolax) 5 mg PO DAILY PRN PRN Reason: Constipation Cholecalciferol (Vitamin D3) 5,000 unit PO DAILY [facility] Diphenhydramine HCl (Benadryl) 25 mg IVPUSH Q8H [facility] Last Admin: 01/03/19 23:21 Dose: 25 mg Docusate Sodium (Colace) 100 mg PO BID PRN PRN Reason: Constipation Famotidine (Pepcid) 20 mg IVPUSH Q8H [facility] Last Admin: 01/03/19 23:21 Dose: 20 mg Hydralazine HCl (Apresoline) 20 mg IVPUSH Q4H PRN PRN Reason: Hypertension Hydromorphone HCl (Dilaudid) 0.25 mg IVPUSH Q2H PRN PRN Reason: Pain (severe 7-10) Promethazine HCl 6.25 mg/ (Sodium Chloride) 50.25 mls @ 100 mls/hr IV Q6H PRN PRN Reason: Nausea/Vomiting Ibuprofen (Motrin) 400 mg PO Q6H PRN PRN Reason: Pain (mild 1-3) Levetiracetam (Keppra) 500 mg PO BID [facility] Last Admin: 01/03/19 20:24 Dose: 500 mg Lorazepam (Ativan) 1 mg IV Q6H PRN PRN Reason: Anxiety Metformin HCl (Glucophage) 500 mg PO BID [facility] Methylprednisolone Sodium Succinate (Solu-Medrol) 125 mg IVPUSH Q8H [facility] Last Admin: 01/03/19 23:21 Dose: 125 mg Metoprolol Tartrate (Lopressor) 5 mg IVPUSH Q4H PRN PRN Reason: Tachycardia Non-Formulary Medication (Fluticasone/Salmeterol) 1 puff INH BID [facility] Ondansetron HCl (Zofran) 4 mg IV Q6H PRN PRN Reason: Nausea/Vomiting Pantoprazole Sodium (Protonix) 40 mg PO DAILY@0700 [facility] Senna/Docusate Sodium (Senna Plus) 1 tab PO BID PRN PRN Reason: Constipation Venlafaxine HCl (Effexor Xr) 150 mg PO DAILY [facility] Last Admin: 01/03/19 14:27 Dose: 150 mg Discontinued Medications C1 Esterase Inhibitor (Human) (Berinert) 1,600 units IV ONETIME STA Stop: 01/03/19 01:52 Last Admin: 01/03/19 04:09 Dose: 1,100 units Pantoprazole Sodium (Protonix Iv) 40 mg IV Q12HR [facility] Pantoprazole Sodium (Protonix) 40 mg PO DAILY@0700 [facility] Tranexamic Acid (Cyklokapron) 1,000 mg IVPUSH ONETIME ONE Stop: 01/03/19 00:32 Last Admin: 01/03/19 00:44 Dose: 1,000 mg - Exam General: Alert, Oriented, Cooperative, No Acute Distress HEENT: Pupils Equal, Pupils Reactive, EOMI, Mucous Membr. Moist/[place], Other ( Lip and Tongue swelling are very minimal; throat swelling improved (could see the back of his throat at this point)) Neck: Supple Lungs: Clear to Auscultation, Normal Respiratory Effort Cardiovascular: Regular Rate, Regular Rhythm GI/Abdominal Exam: Normal Bowel Sounds, Soft, Non-Tender, No Organomegaly, No Distention (Male) Exam: Deferred Extremities: Normal Inspection, Normal Range of Motion, Non-Tender, No Pedal Edema, Normal Capillary Refill Peripheral Pulses: 2+: Posterior Tibial (L), Posterior Tibial (R), Dorsalis Pedis (L), Dorsalis Pedis (R) Skin: Warm, Dry, Intact Neurological: No New Focal Deficit Psy/Mental Status: Alert, Normal Affect, Normal Mood - Problem List Review Problem List Initiated/Reviewed/Updated: Yes - My Orders Last 24 Hours: My Active Orders 01/03/19 07:31 Height and Weight [RC] 0400 Oxygen Therapy [RC] PRN Up ad Veda [RC] ASDIRECTED VTE/DVT Education [RC] PER UNIT ROUTINE Vital Signs [RC] Q4HR Consult to Case Management/Seed District Sales Manager [CONS] Routine Acetaminophen [Tylenol] 650 mg PO Q4H PRN Acetaminophen/HYDROcodone [[place] 325-5 MG] 1 tab PO Q4H PRN Albuterol/Ipratropium [DuoNeb 3.0-0.5 MG/3 ML] 3 ml NEB Q4H PRN Bisacodyl [Dulcolax] 5 mg PO DAILY PRN Docusate Sodium [Colace] 100 mg PO BID PRN Docusate Sodium/Sennosides [Senna Plus] 1 tab PO BID PRN HYDROmorphone [Dilaudid] 0.25 mg IVPUSH Q2H PRN Ibuprofen [Motrin] 400 mg PO Q6H PRN LORazepam [Ativan] 1 mg IV Q6H PRN Metoprolol Tartrate [Lopressor] 5 mg IVPUSH Q4H PRN Ondansetron [Zofran] 4 mg IV Q6H PRN Promethazine [Phenergan] 6.25 mg Sodium Chloride 0.9% [Normal Saline] 50 ml IV Q6H hydrALAZINE [Apresoline] 20 mg IVPUSH Q4H PRN Resuscitation Status Routine 01/03/19 07:32 Cardiac Monitoring [RC] CONTINUOUS Intake and Output [RC] 04,16 Sequential Compression Device [OM.PC] Per Unit Routine 01/03/19 07:33 Antiembolic Devices [RC] PER UNIT ROUTINE RT Aerosol Therapy [RC] ASDIRECTED 01/03/19 07:41 Consult to Speech Language Pathology [DOOR TO DOOR SALESPERSON Evaluation and Treatment] [CONS] Routine 01/03/19 07:45 methylPREDNISolone Sod Succ [Solu-MEDROL] 125 mg IVPUSH Q8H 01/03/19 08:00 Famotidine [Pepcid] 20 mg IVPUSH Q8H diphenhydrAMINE [Benadryl] 25 mg IVPUSH Q8H 01/03/19 09:00 Fluticasone/Salmeterol 1 puff INH BID Venlafaxine [Effexor XR] 150 mg PO DAILY levETIRAcetam [Keppra] 500 mg PO BID metFORMIN [Glucophage] 500 mg PO BID 01/03/19 Dinner Mechanical Soft Diet [DIET] 01/04/19 04:53 C1 ESTERASE INHIBITOR, SERUM [REF] Routine 01/04/19 08:00 Pantoprazole [ProTONIX] 40 mg PO DAILY@0700 01/04/19 09:00 Cholecalciferol (Vitamin D3) [Vitamin D3] 5,000 unit PO DAILY 01/05/19 05:11 BASIC METABOLIC PANEL,BMP [CHEM] AM CBC WITH AUTO DIFF [HEME] AM MAGNESIUM [CHEM] AM 01/06/19 05:11 BASIC METABOLIC PANEL,BMP [CHEM] AM CBC WITH AUTO DIFF [HEME] AM MAGNESIUM [CHEM] AM 01/07/19 05:11 BASIC METABOLIC PANEL,BMP [CHEM] AM CBC WITH AUTO DIFF [HEME] AM MAGNESIUM [CHEM] AM - Plan Plan:: Assessment: Acute: Angioedema Without Respiratory Compromise - Suspect 2/2 ACEI - Was started on Effexor XR and Gemfibrozil 2-3 weeks ago--> both could cause angioedema but < 1% - Swollen Lips and Tongue - Uvula is deviated to the left and melanie-pharynx is narrowed and swollen - No skin rash - Received C1 Esterases Inhibitor in ED plus Tranexamic Acid treatment in ED - C1E inhibitor level - IV Steroid, H1 and H2 Blockers - DOOR TO DOOR SALESPERSON eval completed: see recommendations Chronic: Impaired, Hx/o DVT treated with Eliquis for 7-8 months, HTN, HLD, Asthma, GERD, Seizure Disorder, DM2, Substance Abuse, Anxiety and Depression Plan: He is clinically stable Transfer to [facility] w/o Tele Advance diet as tolerance Routine AM Labs DVT/GI Prophylaxis SW/CM for d/c planning Additional orders as above Possible discharge in AM
[2019-01-04] MEDS: levETIRAcetam 500 MG Tab PO SCH (08:31)
[2019-01-04] MEDS: metFORMIN 500 MG Tab PO SCH ×3 (08:31→10:32)
[2019-01-04] MEDS: Venlafaxine 75 MG Cap.ER PO SCH (08:32)
[2019-01-04] MEDS ORDERED: Cholecalciferol (Vitamin D3) 5,000 UNIT Tab PO SCH (09:00)
[2019-01-04] MEDS: methylPREDNISolone Sodium Succinate 125 MG/2 ML SDV IVPUSH SCH (09:08)
[2019-01-04] MEDS: Famotidine 20 MG/2 ML SDV IVPUSH SCH (09:10)
[2019-01-04] MEDS: diphenhydrAMINE 50 MG/ML SDV IVPUSH SCH (09:11)
[2019-01-04 11:28] VITALS: BP 132/95
[2019-01-04] MEDS ORDERED: Magnesium Sulfate/Water 2 GM in Premix Bag 1 BAG IV ONE (15:10)
--- NOTE | 2019-01-04 21:36 | PCM.DCSUM1 ---
Discharge Summary - Hospital Course Brief History: This is a 38 yo Male with past medical hx/o Impaired, Hx /o DVT treated with Eliquis for 7-8 months, HTN, HLD, Asthma, GERD, Seizure Disorder, DM2, Substance Abuse, Anxiety and Depression who presents to ED with complaints of lip swelling started at about 2000 last evening associated with numbness to his tongue and dysphagia followed by throat itching. No cutaneous changes or complaints, dyspnea, shortness of breath or chest discomfort. He reports no similar hx in the past. He took Benadryl last night just prior to arrival in ED. Patient takes Lisinopril and Metformin for HTN and Diabetes respectively. He is also on Keppra for Seizure Disorder. However he was started on Effexor XR and Gemfibrozil about 2-3 weeks ago. He denies any unusual diet or drinks. 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 primarily for treatment of angioedema - Discharge Data Discharge Date: 01/04/19 Discharge Disposition: Against Medical Advice 07 Condition: Good - Discharge Diagnosis/Problem(s) (1) Angioedema SNOMED Code(s): 17783835 ICD Code: T78.3XXA - ANGIONEUROTIC EDEMA, INITIAL ENCOUNTER Status: Acute (2) Hypomagnesemia SNOMED Code(s): 658502249 ICD Code: E83.42 - HYPOMAGNESEMIA Status: Resolved - Patient Summary/Data Operative Procedure(s) Performed: None Complications: None Consults: Consultations 01/03/19 07:31 Consult to Case Management/Provisioning Analyst [CONS] Routine 01/03/19 07:41 Consult to Speech Language Pathology [HEMODIALYSIS PATIENT CARE SPECIALIST Evaluation and Treatment] [CONS] Routine Labs Pending at D/C: None Recommended Follow-up Testing/Procedures: None Planned Operative Procedure(s) after DC: None Hospital Course: Patient was admitted for angioedema attributed to his ACEI. He received C1 Esterase Inhibitor and Tranexamic Acid in ED. When he got to the unit, he received IV Steroid, H1 as well H2 manisha and he responded well to this regimen. Unfortunately, he decided to leave AMA this evening after they moved him to one of the OBS rooms. - Patient Instructions Other/Special Instructions: Patient left AMA - Discharge Plan *PRESCRIPTION DRUG MONITORING PROGRAM REVIEWED*: Not Applicable *COPY OF PRESCRIPTION DRUG MONITORING REPORT IN PATIENT RADHA: Not Applicable Home Medications: Home Meds levETIRAcetam [Keppra] 500 mg PO BID 04/06/14 [History] metFORMIN [Glucophage] 500 mg PO BID 04/06/14 [History] Fluticasone/Salmeterol [Advair 250-50 Diskus] 1 puff INH BID 01/02/19 [History] Venlafaxine HCl [Venlafaxine ER] 150 mg PO DAILY 01/02/19 [History] Cetirizine [ZyrTEC] 10 mg PO DAILY 01/03/19 [History] Cholecalciferol (Vitamin D3) [Vitamin D] 5,000 unit PO DAILY 01/03/19 [History] Lisinopril 1 dose PO DAILY 01/03/19 [History] Omeprazole 20 mg PO DAILY 01/03/19 [History] Referrals: PCP,None [Primary Care Provider] - - Discharge Summary/Plan Comment DC Time >30 min.: No Discharge Summary/Plan Comment: Patient left AMA - General Info Date of Service: 01/04/19 Admission Dx/Problem (Free Text: Admission Diagnosis/Problem Admission Diagnosis/Problem Angioedema Subjective Update: Follow Up - Review of Systems Systems Review Comment: FILOMENA, unable to obtain patient left AMA - Patient Data Vitals - Most Recent: Last Vital Signs Temp 36.2 C 01/04/19 08:00 Pulse 94 01/04/19 08:00 Resp 16 01/04/19 08:00 BP 132/95 H 01/04/19 08:00 Pulse Ox 95 01/04/19 08:00 Weight - Most Recent: 79.379 kg I&O - Last 24 hours: Intake & Output 01/04/19 01/04/19 01/04/19 06:59 14:59 22:59 Intake Total 600 Output Total 800 Balance -800 600 Lab Results - Last 24 hrs: Laboratory Results - last 24 hr 01/04/19 01/04/19 Range/Units 04:53 04:53 WBC 16.95 H (4.23-9.07) K/mm3 RBC 4.47 L (4.63-6.08) M/mm3 Hgb 14.1 (13.7-17.5) gm/L Hct 39.7 L (40.1-51.0) % MCV 88.8 (79.0-92.2) fl MCH 31.5 (25.7-32.2) pg MCHC 35.5 (32.2-35.5) g/dl RDW Std Deviation 42.1 (35.1-43.9) fL Plt Count 250 (163-337) K/mm3 MPV 13.6 H (9.4-12.3) fl Neut % (Auto) 89.5 H (34.0-67.9) % Lymph % (Auto) 8.8 L (21.8-53.1) % [place] % (Auto) 1.4 L (5.3-12.2) % Eos % (Auto) 0 L (0.8-7.0) Baso % (Auto) 0.1 (0.1-1.2) % Neut # (Auto) 15.17 H (1.78-5.38) K/mm3 Lymph # (Auto) 1.50 (1.32-3.57) K/mm3 [place] # (Auto) 0.23 L (0.30-0.82) K/mm3 Eos # (Auto) 0.00 L (0.04-0.54) K/mm3 Baso # (Auto) 0.01 (0.01-0.08) K/mm3 Manual Slide Review Abnormal smear Sodium 137 (136-145) mEq/L Potassium 4.4 (3.5-5.1) mEq/L Chloride 101 (98-107) mEq/L Carbon Dioxide 21 (21-32) mEq/L Anion Gap 19.4 H (5-15) BUN 27 H (7-18) mg/dL Creatinine 1.0 (0.7-1.3) mg/dL Est Cr Clr Drug Dosing 91.81 mL/min Estimated GFR (MDRD) > 60 (>60) mL/min BUN/Creatinine Ratio 27.0 H (14-18) Glucose 168 H (74-106) mg/dL Calcium 9.8 (8.5-10.1) mg/dL Magnesium 1.7 L (1.8-2.4) mg/dl Med Orders - Current: Current Medications Discontinued Medications Acetaminophen (Tylenol) 650 mg PO Q4H PRN PRN Reason: Pain (Mild 1-3)/fever Hydrocodone Bitart/Acetaminophen ([place] 325-5 Mg) 1 tab PO Q4H PRN PRN Reason: Pain (moderate 4-6) Albuterol/Ipratropium (Duoneb 3.0-0.5 Mg/3 Ml) 3 ml NEB Q4H PRN PRN Reason: Shortness Of Breath/wheezing Bisacodyl (Dulcolax) 5 mg PO DAILY PRN PRN Reason: Constipation C1 Esterase Inhibitor (Human) (Berinert) 1,600 units IV ONETIME STA Stop: 01/03/19 01:52 Last Admin: 01/03/19 04:09 Dose: 1,100 units Cholecalciferol (Vitamin D3) 5,000 unit PO DAILY [facility] Last Admin: 01/04/19 08:31 Dose: 5,000 unit Diphenhydramine HCl (Benadryl) 25 mg IVPUSH Q8H [facility] Last Admin: 01/04/19 09:11 Dose: 25 mg Docusate Sodium (Colace) 100 mg PO BID PRN PRN Reason: Constipation Famotidine (Pepcid) 20 mg IVPUSH Q8H [facility] Last Admin: 01/04/19 09:10 Dose: 20 mg Hydralazine HCl (Apresoline) 20 mg IVPUSH Q4H PRN PRN Reason: Hypertension Hydromorphone HCl (Dilaudid) 0.25 mg IVPUSH Q2H PRN PRN Reason: Pain (severe 7-10) Promethazine HCl 6.25 mg/ (Sodium Chloride) 50.25 mls @ 100 mls/hr IV Q6H PRN PRN Reason: Nausea/Vomiting Magnesium Sulfate 2 gm/ Premix 50 mls @ 25 mls/hr IV ONETIME ONE Stop: 01/04/19 17:09 Last Admin: 01/04/19 15:22 Dose: 25 mls/hr Ibuprofen (Motrin) 400 mg PO Q6H PRN PRN Reason: Pain (mild 1-3) Levetiracetam (Keppra) 500 mg PO BID [facility] Last Admin: 01/04/19 08:31 Dose: 500 mg Loratadine (Claritin) 10 mg PO DAILY [facility] Lorazepam (Ativan) 1 mg IV Q6H PRN PRN Reason: Anxiety Metformin HCl (Glucophage) 500 mg PO BID [facility] Last Admin: 01/04/19 10:32 Dose: Not Given Methylprednisolone Sodium Succinate (Solu-Medrol) 125 mg IVPUSH Q8H [facility] Last Admin: 01/04/19 09:08 Dose: 125 mg Metoprolol Tartrate (Lopressor) 5 mg IVPUSH Q4H PRN PRN Reason: Tachycardia Non-Formulary Medication (Fluticasone/Salmeterol) 1 puff INH BID [facility] Ondansetron HCl (Zofran) 4 mg IV Q6H PRN PRN Reason: Nausea/Vomiting Pantoprazole Sodium (Protonix Iv) 40 mg IV Q12HR [facility] Pantoprazole Sodium (Protonix) 40 mg PO DAILY@0700 [facility] Pantoprazole Sodium (Protonix) 40 mg PO DAILY@0700 [facility] Last Admin: 01/04/19 08:31 Dose: 40 mg Senna/Docusate Sodium (Senna Plus) 1 tab PO BID PRN PRN Reason: Constipation Tranexamic Acid (Cyklokapron) 1,000 mg IVPUSH ONETIME ONE Stop: 01/03/19 00:32 Last Admin: 01/03/19 00:44 Dose: 1,000 mg Venlafaxine HCl (Effexor Xr) 150 mg PO DAILY [facility] Last Admin: 01/04/19 08:32 Dose: 150 mg - Exam Physical Findings Comments:: PE not able to perform, patient left AMA
[2019-01-05] MEDS ORDERED: Loratadine 10 MG Tab PO SCH (09:00)
== END 2019-01-04 17:07 | disposition left against medical advice (07) ==
LOC: JD.ED 23:48 → JD.ICU 01-03 06:03 → JD.MS 01-04 15:48
PROVIDERS: ADMIT Internal Medicine; ATTEND Internal Medicine
DX: T78.3XXA Angioneurotic edema, initial encounter (principal); T46.4X5A Adverse effect of angiotensin-converting-enzyme inhibitors, initial encounter; E83.42 Hypomagnesemia; I10 Essential (primary) hypertension; E11.9 Type 2 diabetes mellitus without complications; E78.5 Hyperlipidemia, unspecified; J45.909 Unspecified asthma, uncomplicated; K21.9 Gastro-esophageal reflux disease without esophagitis; F41.9 Anxiety disorder, unspecified; G40.909 Epilepsy, unspecified, not intractable, without status epilepticus; F32.9 Major depressive disorder, single episode, unspecified; Z88.1 Allergy status to other antibiotic agents; Z88.8 Allergy status to other drugs, medicaments and biological substances; Z87.891 Personal history of nicotine dependence; Z86.718 Personal history of other venous thrombosis and embolism; Z53.21 Procedure and treatment not carried out due to patient leaving prior to being seen by health care provider; Z79.84 Long term (current) use of oral hypoglycemic drugs; Z79.899 Other long term (current) drug therapy
CPT/HCPCS: 36415; 80048; 83735; 85025; 86160; 92610; A9270; J0598; J1200; J2930; J3475; J3490

== ENCOUNTER 2019-08-01 20:19 | Emergency (ER) | payer SELFPAY ==
[2019-08-01 20:31] VITALS: BP 134/93; PULSE 126
--- NOTE | 2019-08-01 20:42 | EDM.PDOC ---
ED HPI GENERAL MEDICAL PROBLEM - General Chief Complaint: ENT Problem Stated Complaint: TOOTH PAIN Time Seen by Provider: 08/01/19 20:31 Source of Information: Reports: Patient History Limitations: Reports: No Limitations - History of Present Illness INITIAL COMMENTS - FREE TEXT/NARRATIVE: The patient presents with left upper dental pain. This started about 3 days ago. He has no fever or chills. Onset: Gradual Duration: Day(s): (3) Location: Reports: Other (Mouth) Quality: Reports: Sharp Severity: Severe Improves with: Reports: None Worsens with: Reports: None Associated Symptoms: Reports: No Other Symptoms Left Upper Tooth/Teeth Pain Score (Numeric/FACES): 8 - Related Data Allergies Allergy/AdvReac Type Severity Reaction Status Date / Time cephalexin monohydrate Allergy Hives Verified 08/01/19 20:31 [From Keflex] lisinopril Allergy Airway Verified 08/01/19 20:31 Tightness cyclobenzaprine HCl AdvReac Seizure Verified 08/01/19 20:31 [From Flexeril] diazepam [From Valium] AdvReac Seizure Verified 08/01/19 20:31 Home Meds: Home Meds levETIRAcetam [Keppra] 500 mg PO BID 04/06/14 [History] metFORMIN [Glucophage] 500 mg PO BID 04/06/14 [History] Fluticasone/Salmeterol [Advair 250-50 Diskus] 1 puff INH BID 01/02/19 [History] Cetirizine [ZyrTEC] 10 mg PO DAILY 01/03/19 [History] Cholecalciferol (Vitamin D3) [Vitamin D] 5,000 unit PO DAILY 01/03/19 [History] Omeprazole 20 mg PO DAILY 01/03/19 [History] Penicillin V Potassium 500 mg PO Q6HR #40 tab 08/01/19 [Rx] oxyCODONE HCl/Acetaminophen [Percocet 5-325 mg Tablet] 1 - 2 each PO Q6HR PRN # 15 tablet 08/01/19 [Rx] Past Medical History HEENT History: Reports: Impaired Vision Cardiovascular History: Reports: Blood Clots/VTE/DVT, High Cholesterol, Hypertension Respiratory History: Reports: Asthma Gastrointestinal History: Reports: GERD Genitourinary History: Reports: None Neurological History: Reports: Seizure Psychiatric History: Reports: Anxiety, Depression Endocrine/Metabolic History: Reports: Diabetes, Type II Hematologic History: Reports: None Immunologic History: Reports: None Oncologic (Cancer) History: Reports: None Dermatologic History: Reports: None - Infectious Disease History Infectious Disease History: Reports: None Other Infectious Disease History: camphlobacter - Past Surgical History HEENT Surgical History: Reports: Oral Surgery GI Surgical History: Reports: Appendectomy, Cholecystectomy Musculoskeletal Surgical History: Reports: ORIF Social & Family History - Family History Family Medical History: Noncontributory Endocrine/Metabolic: Reports: Diabetes, type II - Tobacco Use Smoking Status *Q: Never Smoker - Caffeine Use Caffeine Use: Reports: Soda Other Caffeine Use: 12 pack a day root beer - Recreational Drug Use Recreational Drug Use: Yes Recreational Drug Type: Reports: Marijuana/Hashish - Living Situation & Occupation Living situation: Reports: Single, Other (with a friend) Occupation: Employed ([employer]) ED ROS ENT - Review of Systems Review Of Systems: See Below Constitutional: Reports: No Symptoms HEENT: Reports: Dental Pain Respiratory: Reports: No Symptoms Cardiovascular: Reports: No Symptoms Endocrine: Reports: No Symptoms GI/Abdominal: Reports: No Symptoms : Reports: No Symptoms Musculoskeletal: Reports: No Symptoms ED EXAM, ENT - Physical Exam Exam: See Below Exam Limited By: No Limitations General Appearance: Alert, No Apparent Distress Ears: Normal External Exam Nose: Normal Inspection Mouth/Throat: Other (Pain upon palpation to the left upper 2nd molar) Course - Vital Signs Last Recorded V/S: Last Vital Signs Temp 97.9 F 08/01/19 20:28 Pulse 126 H 08/01/19 20:28 Resp 16 08/01/19 20:28 BP 134/93 H 08/01/19 20:28 Pulse Ox 97 08/01/19 20:28 Departure - Departure Time of Disposition: 20:40 Disposition: Home, Self-Care 01 Condition: Good Clinical Impression: Pain, dental, Dental abscess - Discharge Information *PRESCRIPTION DRUG MONITORING PROGRAM REVIEWED*: No *COPY OF PRESCRIPTION DRUG MONITORING REPORT IN PATIENT RADHA: No Prescriptions: oxyCODONE HCl/Acetaminophen [Percocet 5-325 mg Tablet] 1 - 2 each PO Q6HR PRN # 15 tablet PRN Reason: Pain Penicillin V Potassium 500 mg PO Q6HR #40 tab Referrals: PCP,Not In Area [Primary Care Provider] - Additional Instructions: Take the penicillin VK as prescribed. Take motrin or tylenol for pain. If that does not help, try the percocet. Follow up with a dentist within a week or two. Sepsis Event Note - Evaluation Sepsis Screening Result: No Definite Risk - Focused Exam Vital Signs: Vital Signs Temp Pulse Resp BP Pulse Ox 08/01/19 20:28 97.9 F 126 H 16 134/93 H 97 Date Exam was Performed: 08/01/19 Time Exam was Performed: 20:37
== END 2019-08-01 20:48 | disposition home or self-care (01) ==
LOC: JD.ED 20:19
DX: K04.7 Periapical abscess without sinus (principal); I10 Essential (primary) hypertension; E78.00 Pure hypercholesterolemia, unspecified; Z86.718 Personal history of other venous thrombosis and embolism; K21.9 Gastro-esophageal reflux disease without esophagitis; F41.9 Anxiety disorder, unspecified; F32.9 Major depressive disorder, single episode, unspecified; E11.9 Type 2 diabetes mellitus without complications; Z88.8 Allergy status to other drugs, medicaments and biological substances; Z88.1 Allergy status to other antibiotic agents; Z79.84 Long term (current) use of oral hypoglycemic drugs; Z79.899 Other long term (current) drug therapy
CPT/HCPCS: 99282; 99283

== ENCOUNTER 2019-09-18 09:37 | Emergency (ER) | payer SELFPAY ==
[2019-09-18 09:48] VITALS: BP 157/85; PULSE 78
--- NOTE | 2019-09-18 10:02 | EDM.PDOC ---
ED HPI GENERAL MEDICAL PROBLEM - General Chief Complaint: Drug or Alcohol Abuse Stated Complaint: CHECKED OUT TO GO TO [facility] Time Seen by Provider: 09/18/19 09:55 - History of Present Illness INITIAL COMMENTS - FREE TEXT/NARRATIVE: 38-year-old male presents to the emergency room for opioid withdrawal. Apparently the patient was seen at [facility] and was advised to come over here to be medically cleared. This occurred yesterday. Patient states that he is using what he thinks is oxycodone 30 mg 5 times a day. Or 150 mg a day. The patient states he gets nauseated and has abdominal pain when he tries to stop taking it. And he did describes this as not tolerable when he has it he last took the oxycodone around 2:00 this morning. Patient denies any other problems at this point. - Related Data Allergies Allergy/AdvReac Type Severity Reaction Status Date / Time cephalexin monohydrate Allergy Severe Hives Verified 09/18/19 09:47 [From Keflex] lisinopril Allergy Severe Airway Verified 09/18/19 09:47 Tightness cyclobenzaprine HCl AdvReac Severe Seizure Verified 09/18/19 09:47 [From Flexeril] diazepam [From Valium] AdvReac Severe Seizure Verified 09/18/19 09:47 Home Meds: Home Meds levETIRAcetam [Keppra] 500 mg PO BID 04/06/14 [History] metFORMIN [Glucophage] 500 mg PO BID 04/06/14 [History] Fluticasone Propion/Salmeterol [Advair 250-50 Diskus] 1 puff INH BID 01/02/19 [ History] Cetirizine [ZyrTEC] 10 mg PO DAILY 01/03/19 [History] Cholecalciferol (Vitamin D3) [Vitamin D] 5,000 unit PO DAILY 01/03/19 [History] Omeprazole 20 mg PO DAILY 01/03/19 [History] Penicillin V Potassium 500 mg PO Q6HR #40 tab 08/01/19 [Rx] oxyCODONE HCl/Acetaminophen [Percocet 5-325 mg Tablet] 1 - 2 each PO Q6HR PRN # 15 tablet 08/01/19 [Rx] Past Medical History HEENT History: Reports: Impaired Vision Cardiovascular History: Reports: Blood Clots/VTE/DVT, High Cholesterol, Hypertension Respiratory History: Reports: Asthma Gastrointestinal History: Reports: GERD Genitourinary History: Reports: None Neurological History: Reports: Seizure Psychiatric History: Reports: Anxiety, Depression Endocrine/Metabolic History: Reports: Diabetes, Type II Hematologic History: Reports: None Immunologic History: Reports: None Oncologic (Cancer) History: Reports: None Dermatologic History: Reports: None - Infectious Disease History Infectious Disease History: Reports: None Other Infectious Disease History: camphlobacter - Past Surgical History HEENT Surgical History: Reports: Oral Surgery GI Surgical History: Reports: Appendectomy, Cholecystectomy Musculoskeletal Surgical History: Reports: ORIF Social & Family History - Family History Family Medical History: Noncontributory Endocrine/Metabolic: Reports: Diabetes, type II - Tobacco Use Smoking Status *Q: Never Smoker - Caffeine Use Caffeine Use: Reports: Soda Other Caffeine Use: 12 pack a day root beer - Recreational Drug Use Recreational Drug Use: Yes Drug Use in Last 12 Months: Yes Recreational Drug Type: Reports: Marijuana/Hashish, Oxycodone - Living Situation & Occupation Living situation: Reports: Single, Other (with a friend) Occupation: Employed ([employer]) ED ROS GENERAL - Review of Systems Review Of Systems: See Below Constitutional: Reports: No Symptoms HEENT: Reports: No Symptoms Respiratory: Reports: No Symptoms Cardiovascular: Reports: No Symptoms Endocrine: Reports: No Symptoms GI/Abdominal: Reports: No Symptoms : Reports: No Symptoms Musculoskeletal: Reports: No Symptoms Skin: Reports: No Symptoms Neurological: Reports: No Symptoms Psychiatric: Reports: No Symptoms Hematologic/Lymphatic: Reports: No Symptoms (The patient developed a large growth on his upper back and now this is extending into his neck the patient was incarcerated about a year ago and he was told this was an accumulation of fatty tissue.) ED EXAM, GENERAL - Physical Exam Exam: See Below Exam Limited By: No Limitations General Appearance: Alert, No Apparent Distress Eye Exam: Bilateral Eye: EOMI Ears: Normal External Exam, Normal Canal, Hearing Grossly Normal, Normal TMs Nose: Normal Inspection, Normal Mucosa, No Blood Throat/Mouth: Normal Inspection, Normal Lips, Normal Teeth, Normal Gums, Normal Oropharynx, Normal Voice, No Airway Compromise Head: Atraumatic, Normocephalic Neck: Other (Patient has a large fatty accumulation in the anterior neck) Respiratory/Chest: No Respiratory Distress, Lungs Clear, Normal Breath Sounds Cardiovascular: Normal Peripheral Pulses, Regular Rate, Rhythm, No Edema, No Murmur GI/Abdominal: Normal Bowel Sounds, Soft, Non-Tender Back Exam: Other (Is a large fatty accumulation in the midline of his back at the upper thoracic region extending into the lower cervical area he has some skin discoloration in this area as well). No: Normal Inspection, CVA Tenderness (L), CVA Tenderness (R), Muscle Spasm Skin Exam: Other (He has skin discoloration in the lower neck area hyperpigmentation specimen striations noted in his lower back) Lymphatic: No Adenopathy Course - Vital Signs Last Recorded V/S: Last Vital Signs Temp 36.6 C 09/18/19 09:45 Pulse 78 09/18/19 09:45 Resp 16 09/18/19 09:45 BP 157/85 H 09/18/19 09:45 Pulse Ox 97 09/18/19 09:45 - Orders/Labs/Meds Labs: Laboratory Tests 09/18/19 09/18/19 09/18/19 Range/Units 10:15 10:15 11:10 WBC 8.67 (4.23-9.07) K/mm3 RBC 4.39 L (4.63-6.08) M/mm3 Hgb 13.9 (13.7-17.5) gm/dl Hct 39.9 L (40.1-51.0) % MCV 90.9 (79.0-92.2) fl MCH 31.7 (25.7-32.2) pg MCHC 34.8 (32.2-35.5) g/dl RDW Std Deviation 46.1 H (35.1-43.9) fL Plt Count 226 (163-337) K/mm3 MPV 12.4 H (9.4-12.3) fl Neut % (Auto) 57.7 (34.0-67.9) % Lymph % (Auto) 28.4 (21.8-53.1) % [place] % (Auto) 8.1 (5.3-12.2) % Eos % (Auto) 4.8 (0.8-7.0) Baso % (Auto) 0.7 (0.1-1.2) % Neut # (Auto) 5.00 (1.78-5.38) K/mm3 Lymph # (Auto) 2.46 (1.32-3.57) K/mm3 [place] # (Auto) 0.70 (0.30-0.82) K/mm3 Eos # (Auto) 0.42 (0.04-0.54) K/mm3 Baso # (Auto) 0.06 (0.01-0.08) K/mm3 Sodium 141 (136-145) mEq/L Potassium 4.1 (3.5-5.1) mEq/L Chloride 104 (98-107) mEq/L Carbon Dioxide 25 (21-32) mEq/L Anion Gap 16.1 H (5-15) BUN 18 (7-18) mg/dL Creatinine 0.8 (0.7-1.3) mg/dL Est Cr Clr Drug Dosing 114.76 mL/min Estimated GFR (MDRD) > 60 (>60) mL/min BUN/Creatinine Ratio 22.5 H (14-18) Glucose 147 H (74-106) mg/dL Calcium 9.1 (8.5-10.1) mg/dL Total Bilirubin 0.3 (0.2-1.0) mg/dL AST 30 (15-37) U/L ALT 69 H (16-63) U/L Alkaline Phosphatase 95 (46-116) U/L Total Protein 7.0 (6.4-8.2) g/dl Albumin 3.6 (3.4-5.0) g/dl Globulin 3.4 gm/dL Albumin/Globulin Ratio 1.1 (1-2) TSH 3rd Generation 1.675 (0.358-3.74) uIU/mL Urine Color (Yellow) Urine Appearance (Clear) Urine pH (5.0-8.0) Ur Specific [place] (1.005-1.030) Urine Protein (Negative) Urine Glucose (UA) (Negative) Urine Ketones (Negative) Urine Occult Blood (Negative) Urine Nitrite (Negative) Urine Bilirubin (Negative) Urine Urobilinogen (0.2-1.0) Ur Leukocyte Esterase (Negative) Urine Opiates Screen Negative (PCURVR=963) Ur Buprenorphine Scrn Negative (CUTOFF=10) Ur Oxycodone Screen Negative (NDJ4GR=455) Urine Methadone Screen Negative (UJU4TY=445) Ur Propoxyphene Screen Negative (WJHKMJ=823) Ur Barbiturates Screen Negative (FZHHRA=013) Ur Tricyclics Screen Negative (IEEIQE=887) Ur Phencyclidine Scrn Negative (CUTOFF=25) Ur Amphetamine Screen Negative (APKQMF=633) U Methamphetamines Scrn Negative (MWDPKE=358) U Benzodiazepines Scrn Negative (COBSGD=057) U Cocaine Metab Screen Negative (CJXGFF=452) U Marijuana (THC) Screen Presumptive positive H (CUTOFF=50) Ethyl Alcohol 0.00 (0.00) gm% 09/18/19 Range/Units 11:10 WBC (4.23-9.07) K/mm3 RBC (4.63-6.08) M/mm3 Hgb (13.7-17.5) gm/dl Hct (40.1-51.0) % MCV (79.0-92.2) fl MCH (25.7-32.2) pg MCHC (32.2-35.5) g/dl RDW Std Deviation (35.1-43.9) fL Plt Count (163-337) K/mm3 MPV (9.4-12.3) fl Neut % (Auto) (34.0-67.9) % Lymph % (Auto) (21.8-53.1) % [place] % (Auto) (5.3-12.2) % Eos % (Auto) (0.8-7.0) Baso % (Auto) (0.1-1.2) % Neut # (Auto) (1.78-5.38) K/mm3 Lymph # (Auto) (1.32-3.57) K/mm3 [place] # (Auto) (0.30-0.82) K/mm3 Eos # (Auto) (0.04-0.54) K/mm3 Baso # (Auto) (0.01-0.08) K/mm3 Sodium (136-145) mEq/L Potassium (3.5-5.1) mEq/L Chloride (98-107) mEq/L Carbon Dioxide (21-32) mEq/L Anion Gap (5-15) BUN (7-18) mg/dL Creatinine (0.7-1.3) mg/dL Est Cr Clr Drug Dosing mL/min Estimated GFR (MDRD) (>60) mL/min BUN/Creatinine Ratio (14-18) Glucose (74-106) mg/dL Calcium (8.5-10.1) mg/dL Total Bilirubin (0.2-1.0) mg/dL AST (15-37) U/L ALT (16-63) U/L Alkaline Phosphatase (46-116) U/L Total Protein (6.4-8.2) g/dl Albumin (3.4-5.0) g/dl Globulin gm/dL Albumin/Globulin Ratio (1-2) TSH 3rd Generation (0.358-3.74) uIU/mL Urine Color Yellow (Yellow) Urine Appearance Clear (Clear) Urine pH 6.0 (5.0-8.0) Ur Specific [place] > or = 1.030 (1.005-1.030) Urine Protein Negative (Negative) Urine Glucose (UA) Negative (Negative) Urine Ketones Negative (Negative) Urine Occult Blood Negative (Negative) Urine Nitrite Negative (Negative) Urine Bilirubin Negative (Negative) Urine Urobilinogen 0.2 (0.2-1.0) Ur Leukocyte Esterase Negative (Negative) Urine Opiates Screen (VIYLPS=902) Ur Buprenorphine Scrn (CUTOFF=10) Ur Oxycodone Screen (JHY4JS=581) Urine Methadone Screen (GAA4DS=064) Ur Propoxyphene Screen (TJKJRN=221) Ur Barbiturates Screen (ADPXDW=114) Ur Tricyclics Screen (BZPGSK=432) Ur Phencyclidine Scrn (CUTOFF=25) Ur Amphetamine Screen (JRZXDV=134) U Methamphetamines Scrn (TJQEPP=805) U Benzodiazepines Scrn (OIBYEE=842) U Cocaine Metab Screen (BGWZKO=190) U Marijuana (THC) Screen (CUTOFF=50) Ethyl Alcohol (0.00) gm% Meds: Medications Discontinued Medications Generic Name Dose Route Start Last Admin Trade Name Freq PRN Reason Stop Dose Admin Hydrocodone Bitart/Acetaminophen 2 tab 09/18/19 11:40 09/18/19 11:43 [employer] 325-5 Mg PO 09/18/19 11:41 2 tab ONETIME ONE Administration - Re-Assessments/Exams Free Text/Narrative Re-Assessment/Exam: 09/18/19 12:51 The patient has done fairly well here in the emergency department at one point he did develop some abdominal discomfort he was given 2 [employer] and feels much better and is otherwise doing good at this point the patient will be discharged to [facility] on a brief [employer] taper. Interestingly his UDS was negative for opioids was positive for marijuana. Departure - Departure Time of Disposition: 12:56 Disposition: DC/Tfer to Other 70 Clinical Impression: Opioid withdrawal - Discharge Information Instructions: Opioid Withdrawal Treatment, Finding Treatment for Addiction, Opioid Withdrawal, Warning Signs of Opioid Misuse, Opioid Use Disorder Referrals: PCP,Not In Area [Primary Care Provider] - Additional Instructions: Return to the emergency room with any questions problems or worsening symptoms. Charge straight to the [facility]. Take the [employer] 1 every 6 hours for 2 days, then 1 every 8 hours for 2 days, and then 1 every 12 hours for 2 days then 1 daily for 2 days. Follow up with your regular clinic as soon as you can you need to be evaluated for possible [place]'s disease. Sepsis Event Note - Evaluation Sepsis Screening Result: No Definite Risk - Focused Exam Vital Signs: Vital Signs Temp Pulse Resp BP Pulse Ox 09/18/19 09:45 36.6 C 78 16 157/85 H 97 Date Exam was Performed: 09/18/19 Time Exam was Performed: 13:12
[2019-09-18] MEDS ORDERED: Acetaminophen/HYDROcodone 325-5 MG Tab PO ONE (11:40)
== END 2019-09-18 13:38 | disposition other institution (70) ==
LOC: JD.ED 09:37
DX: F11.23 Opioid dependence with withdrawal (principal); E78.00 Pure hypercholesterolemia, unspecified; I10 Essential (primary) hypertension; J45.909 Unspecified asthma, uncomplicated; K21.9 Gastro-esophageal reflux disease without esophagitis; R56.9 Unspecified convulsions; F41.9 Anxiety disorder, unspecified; F32.9 Major depressive disorder, single episode, unspecified; E11.9 Type 2 diabetes mellitus without complications; Z88.8 Allergy status to other drugs, medicaments and biological substances; Z88.1 Allergy status to other antibiotic agents; Z79.899 Other long term (current) drug therapy; Z79.84 Long term (current) use of oral hypoglycemic drugs
CPT/HCPCS: 36415; 80053; 80306; 80307; 81003; 84443; 85025; 99284; A9270; 99283